=== PATIENT | female | born 1935 | race Caucasian/White ===

== ENCOUNTER 2019-05-27 15:39 | Outpatient (CLI) | payer MEDICARE, OTHER, SELFPAY ==
--- NOTE | 2019-05-27 16:08 | XR_ITS ---
WS: [id number] TIBIA-FIBULA LEFT TECHNIQUE: 2 views of the left tibia-fibula CLINICAL INFORMATION: INJURY OF LEFT LEG COMPARISON: None. FINDINGS: No evidence of acute fracture dislocation. Normal tibiotalar joint. Normal visualized tibia and fibul a. Incidental soft tissue calcification. Prominent soft tissue edema lower leg just above the ankle. Osteopenia. XR/XR tibia fibula LT 2V [id number] IMPRESSION: Prominent soft tissue edema lower leg just above the ankle. Osteopenia. No visu alized fractures.
== END 2019-05-27 15:40 | disposition home or self-care (01) ==
PROVIDERS: Family Provider Family Medicine; PCP Family Medicine; Visit Provider Nurse Practitioner Family
DX: S89.92XA Unspecified injury of left lower leg, initial encounter (principal); X58.XXXA Exposure to other specified factors, initial encounter; R60.9 Edema, unspecified; M85.80 Other specified disorders of bone density and structure, unspecified site
CPT/HCPCS: 73590

== ENCOUNTER 2019-05-28 09:06 | Outpatient (RCR) | payer MEDICARE, OTHER, SELFPAY | END 2019-05-30 23:59 | disposition home or self-care (01) | LOC: WOUND 09:06 | PROVIDERS: Family Provider Family Medicine; PCP Family Medicine; Visit Provider Nurse Practitioner Family | DX: S81.802A Unspecified open wound, left lower leg, initial encounter (principal); X58.XXXA Exposure to other specified factors, initial encounter; Y93.89 Activity, other specified | CPT/HCPCS: 87070; 87077; 87186; 87205; 99204; G0463 ==

== ENCOUNTER 2019-06-08 12:25 | Day surgery (SDC) | payer MEDICARE, OTHER, SELFPAY ==
[2019-06-05 17:21] VITALS: BMI 19.5
[2019-06-08 12:46] VITALS: BP 153/74; PULSE 71; RESP 18; TEMP 36.6; O2SAT 97
[2019-06-08] MEDS: sodium chloride 0.9% 1,000 ML 30 ML IV (12:58)
--- NOTE | 2019-06-08 13:13 | ANES.PREANE2 ---
Pre-Anesthetic Assessment Pre-Anesthetic Assessment: Height/Weight: Height 1.6 m Weight 49.895 kg Temp Pulse Resp BP Pulse Ox 97.9 F 71 18 153/74 97 06/08/19 12:46 06/08/19 12:46 06/08/19 12:46 06/08/19 12:46 06/08/19 12:46 Preop Diagnosis: Left lower extremity wound Proposed Procedure: Operation Date: 06/08/19 14:15 Proposed Procedures p Debridement left lower extremity wound(Left) - Tha Gallegos MD Was Beta Dustin taken within 24 hours: N/A Last intake: Intake Last Liquid Date 06/14/19 Last Liquid Time 17:00 Last Solid Date 06/07/19 Last Solid Time 17:00 Social: Social History: No alcohol and No tobacco Exam: Pre-Anes Outpt Exam: alert, oriented x 3, clear to auscultation bilaterally and regular rate & rhythm Airway: Submandibular: WNL Cervical ROM: WNL MP: 2 Dentition: Full Pulmonary: Pulmonary: None reported CV/HEM: CV/HEM: HTN : : None reported Hepatic: Hepatic: None reported GI: GI: None reported Metabolic: Metabolic: None reported Musc/skel: Musc/skel: None reported Neuropsych: Neuropsych: Syncope Anesthetic Plan: ASA status: 2 Anesthesia: General Risk of > 500 ml blood loss (7ml/kg in children): No Meds/Allergies Current Medications: Current Medications Generic Name Dose Route Start Last Admin Trade Name Freq PRN Reason Stop Dose Admin Sodium Chloride 1,000 mls @ 30 ml s/hr 06/08/19 12:45 06/08/19 12:58 Sodium Chloride 0.9% IV 06/09/19 12:44 30 mls/hr .Q24H OLESYA Administration Data Anesthesia Cardiac Studies: No Data to Display
--- NOTE | 2019-06-08 13:27 | W.PM.OPSUD ---
Surgery/Procedure H&P Update DATE OF PROCEDURE: June 08, 2019 DATE H&P PERFORMED: 06/05/19 H&P UPDATE INFORMATION: I have reviewed H&P completed within last 30 days, I have examined patient prior to procedure and No changes to prior documentation PREOP DIAGNOSIS: Left lower extremity wound PRIMARY INDICATION FOR PROCEDURE: The same PLANNED PROCEDURE: Operation Date: 06/08/19 14:15 Proposed Procedures p Debridement left lower extremity wound(Left) - Tha Gallegos MD
[2019-06-08] MEDS: lidocaine 2% INJ 20 mL INJECTION (14:12)
[2019-06-08 14:17] VITALS: BP 94/49; PULSE 56; RESP 16; TEMP 36.4; O2SAT 99
--- NOTE | 2019-06-08 14:19 | PM.OP ---
Operative Report Date of procedure: June 08, 2019 Pre-op Diagnosis: Left lower extremity wound Post-op diagnosis: same Post-op Diagnosis: The wound reaches all the way to the muscle layer Procedure Done: Debridement of left lower extremity wound Pre-debridement measurements 9 x 6 x 0.5 cm Post debridement measurements 9 x 7 x [address] to the muscle Surgeon: Tha Gallegos Electrical Wiring Lineman: air launch weapons technician Trent Circulating nurse Adenike Anesthesia: MAC (GUS Sosa) Estimated blood loss (mL): 5 Condition: stable Disposition: same day Brief History: This is a pleasant 83 years old female patient had a trauma to the left lower extremity ended up by a traumatic wound with hematoma formation, I was able to evaluate the patient last Saturday at the wound care center based on a consultation from my nurse practitioner Ms. Latif as she has been concerned about patient's clinical progress. After thorough history physical examination and reviewing the chart and images with my personal interpretation I did safety counselor the patient for debridement of left lower extremity wound in the OR in a more controlled environment, patient was empirically started on antibiotics. Indications, risks, benefits and alternatives were all discussed with the patient and she did agree to proceed accordingly Written informed consent per chart Procedure: Left lower extremity traumatic wound: After identifying the patient holding area, the left lower extremity was marked before the procedure by myself, patient was then taken to the operative suite, was placed in supine position, IV antibiotics were given per protocol,IV propofol was infused by the anesthesia provider, prep and drape of the left lower extremity was done under the usual sterile technique. Time-out was done verifying the patient's name/date of /planned procedure and destination after the procedure, all were in agreement. Started by excising the unhealthy necrotic indurated tissues of the wound.Incision was created at the skin level and went all the way down to the subcutaneous tissues, and muscle layer of the wound, I was able excise all unhealthy tissues, there was no evidence of pus. Debridement of left lower extremity wound: Pre-debridement measurements 9 x 6 x 0.5 cm Post debridement measurements 9 x 7 x [address] to the muscle layer Sharp Debridement all the way to the healthier muscle layer Thorough Irrigation of the wound was done with warm saline using Pulsavac 3 L, followed by appropriate hemostasis followed by placement of couple of 3-0 Vicryl ciatmi-jb-hhbud sutures for hemostasis at the caudad and cephalad parts of the wound there was some undermining at 11:00 o'clock, packing of the wound was done with minin Kerlix impregnated in lidocaine 2%, ABDs, Kerlix and Kostas wrap. Patient tolerated the procedure well, count of instruments,needles and sponges were completed at the end of the procedure. Patient was then taken to the recovery area in stable condition. I was present for the whole entire procedure
--- NOTE | 2019-06-08 14:43 | PM.PACU ---
PACU note Post-Anesthesia Exam: awake and vital signs stable Disposition: discharged
[2019-06-08 14:47] VITALS: BP 156/78; PULSE 62; RESP 18; O2SAT 100
== END 2019-06-08 15:15 | disposition home or self-care (01) ==
PROVIDERS: Family Provider Family Medicine; PCP Family Medicine; Visit Provider Surgery
PROC: (CPT 11043; principal; 2019-06-08 13:45)
DX: S81.802A Unspecified open wound, left lower leg, initial encounter (principal); X58.XXXA Exposure to other specified factors, initial encounter; I10 Essential (primary) hypertension
CPT/HCPCS: 11043; 11046 ×3; 12345; 96365; J0131; J0690; J2001; J2704; J3010; J7030

== ENCOUNTER 2019-06-26 14:58 | Outpatient (RCR) | payer MEDICARE, OTHER, SELFPAY | END 2019-06-30 23:59 | disposition home or self-care (01) | LOC: WOUND 14:58 | PROVIDERS: Family Provider Family Medicine; PCP Family Medicine; Visit Provider Surgery | DX: E11.622 Type 2 diabetes mellitus with other skin ulcer (principal); L97.902 Non-pressure chronic ulcer of unspecified part of unspecified lower leg with fat layer exposed | CPT/HCPCS: 11042; 11043; 11045; 11046; 97605; 99214 ==

== ENCOUNTER 2019-07-24 08:48 | Outpatient (RCR) | payer MEDICARE, OTHER, SELFPAY | END 2019-07-30 23:59 | disposition home or self-care (01) | LOC: WOUND 08:48 | PROVIDERS: Family Provider Family Medicine; PCP Family Medicine; Visit Provider Surgery | DX: S81.802A Unspecified open wound, left lower leg, initial encounter (principal); X58.XXXA Exposure to other specified factors, initial encounter; I96 Gangrene, not elsewhere classified | CPT/HCPCS: 11042; 11045; 97597; 97598 ==

== ENCOUNTER 2019-07-31 09:11 | Outpatient (CLI) | payer MEDICARE, OTHER, SELFPAY | END 2019-07-31 09:12 | disposition home or self-care (01) | LOC: WOUND 08-03 13:25 | PROVIDERS: Family Provider Family Medicine; PCP Family Medicine; Visit Provider Surgery | DX: L97.822 Non-pressure chronic ulcer of other part of left lower leg with fat layer exposed | CPT/HCPCS: 11042; 97597 ==

== ENCOUNTER 2019-08-07 09:08 | Outpatient (CLI) | payer MEDICARE, OTHER, SELFPAY | END 2019-08-07 09:09 | disposition home or self-care (01) | LOC: WOUND 09:09 | PROVIDERS: Family Provider Family Medicine; PCP Family Medicine; Visit Provider Surgery | DX: L97.822 Non-pressure chronic ulcer of other part of left lower leg with fat layer exposed | CPT/HCPCS: 11042 ==

== ENCOUNTER 2019-08-14 08:49 | Outpatient (CLI) | payer MEDICARE, OTHER, SELFPAY | END 2019-08-14 08:50 | disposition home or self-care (01) | LOC: WOUND 08:50 | PROVIDERS: Family Provider Family Medicine; PCP Family Medicine; Visit Provider Nurse Practitioner Family | DX: L97.822 Non-pressure chronic ulcer of other part of left lower leg with fat layer exposed | CPT/HCPCS: 11042 ==

== ENCOUNTER 2019-08-18 14:52 | Outpatient (CLI) | payer MEDICARE, OTHER, SELFPAY ==
--- NOTE | 2019-08-18 15:01 | MM_ITS ---
WS: [id number] BILATERAL DIGITAL SCREENING MAMMOGRAPHY WITH CAD CLINICAL INFORMATION: SCREEN HISTORY: Screening mammogram. No current complaints. COMPARISON: January 30, 2016 TECHNIQUE: Bilateral CC and MLO views. FINDINGS: The breasts are composed of heterogeneous fibroglandular density tissue, which can limit the detectio n of small underlying mass lesions. No suspicious mass, asymmetry, calcifications, or architectural d istortion. No evidence of malignancy. Vascular calcification. MM/[place] [id number] IMPRESSION: BI-RADS: 2-Benign FOLLOW UP: 1 Year Follow-up Recommend return to annual screening mammography.
== END 2019-08-18 14:53 | disposition home or self-care (01) ==
LOC: RADSHAW 14:58
PROVIDERS: PCP Family Medicine; Visit Provider Family Medicine
DX: Z12.31 Encounter for screening mammogram for malignant neoplasm of breast (principal)
CPT/HCPCS: 77067

== ENCOUNTER 2019-08-21 09:24 | Outpatient (CLI) | payer MEDICARE, OTHER, SELFPAY | END 2019-08-21 09:25 | disposition home or self-care (01) | LOC: WOUND 09:25 | PROVIDERS: PCP Family Medicine; Visit Provider Surgery | DX: L97.822 Non-pressure chronic ulcer of other part of left lower leg with fat layer exposed | CPT/HCPCS: 97597 ==

== ENCOUNTER 2019-08-28 08:53 | Outpatient (CLI) | payer MEDICARE, OTHER, SELFPAY | END 2019-08-28 08:54 | disposition home or self-care (01) | LOC: WOUND 08:54 | PROVIDERS: PCP Family Medicine; Visit Provider Surgery | DX: I96 Gangrene, not elsewhere classified (principal); L97.822 Non-pressure chronic ulcer of other part of left lower leg with fat layer exposed | CPT/HCPCS: 97597 ==

== ENCOUNTER 2019-09-04 09:06 | Outpatient (CLI) | payer MEDICARE, OTHER, SELFPAY | END 2019-09-04 09:07 | disposition home or self-care (01) | LOC: WOUND 09:09 | PROVIDERS: PCP Family Medicine; Visit Provider Surgery | DX: I96 Gangrene, not elsewhere classified (principal); L97.822 Non-pressure chronic ulcer of other part of left lower leg with fat layer exposed | CPT/HCPCS: 11042 ==

== ENCOUNTER 2019-09-08 14:56 | Outpatient (CLI) | payer MEDICARE, OTHER, SELFPAY ==
--- NOTE | 2019-09-08 15:03 | USCV_ITS ---
Lin Cuellar Age: 84 Gender: F : 1935 Exam Date: 09/08/2019 15:26 Ordering Phys: Fredy Wilson MD Technologist: Denia Crum Exam Location: [facility] [place] Indication: HEART PALP BP: / HR: 62 Rhythm: Sinus Technical Quality: Fair MEASUREMENTS (Male / Female) Normal Values 2D ECHO LV Diastolic Diameter PLAX 2.9 cm 4.2 - 5.9 / 3.9 - 5.3 cm LV Systolic Diameter PLAX 2.4 cm LV Chamber Size 2.8 cm IVS Diastolic Thickness 1.1 cm 0.6 - 1.0 / 0.6 - 0.9 cm IVS Systolic Thickness 1.8 cm LVPW Diastolic Thickness 0.2 cm 0.6 - 1.0 / 0.6 - 0.9 cm LVPW Systolic Thickness 1.0 cm RV Chamber Size 3.0 cm LVOT Diameter 2.0 cm LV Ejection Fraction 2D Teich 36.9 % LV Ejection Fraction MOD 2C 55.1 % LV Ejection Fraction 2C AL 62.8 % LA Diameter 1.3 cm LA Width 2.6 cm LA Height 2.7 cm RA Width 1.9 cm RA Height 1.7 cm Aorta at Sinotubular Diameter 2.5 cm M-MODE LV Diastolic Diameter MM 3.3 cm 4.2 - 5.9 / 3.9 - 5.3 cm LV Systolic Diameter MM 2.6 cm LV Ejection Fraction MM Teich 47.5 % IVS Diastolic Thickness MM 0.9 cm 0.6 - 1.0 / 0.6 - 0.9 cm IVS Systolic Thickness MM 1.0 cm LVPW Diastolic Thickness MM 1.0 cm 0.6 - 1.0 / 0.6 - 0.9 cm LVPW Systolic Thickness MM 0.8 cm RV Diastolic Diameter MM 0.7 cm Aortic Annulus Diameter 3.4 cm LA Ao Ratio MM 0.4 MV E Point Septal Separation 0.4 cm DOPPLER AV Peak Velocity 126.0 cm/s LVOT Peak Velocity 123.0 cm/s AV Area Cont Eq vti 3.3 cm squared AV Area Cont Eq pk 3.0 cm squared MV Area PHT 1.8 cm squared Mitral E to A Ratio 0.7 MV E' Velocity 5.0 cm/s Mitral E to MV E' Ratio 9.9 Mitral E to LV E' Lateral Ratio 12.0 Mitral E to LV E' Septal Ratio 8.5 TR Peak Velocity 246.3 cm/s TR Peak Gradient 24.3 mmHg TR Mean Velocity 180.0 cm/s TR Mean Gradient 14.5 mmHg TR Velocity Time Integral 73.5 cm Right Atrial Pressure 3.0 mmHg Pulmonary Artery Systolic Pressu 27.3 mmHg PV Peak Velocity 56.0 cm/s RV Acceleration Time 0.1 s RV Ejection Time 0.3 s RV AcT/ET 0.4 FINDINGS Left Ventricle Normal left ventricular size and systolic function, EF 55 %. No regional wall motion abnormalities. Mild left ventricular hypertrophy. Grade I/IV diastolic dysfunction (abnormal relaxation filling pattern), normal to mildly elevated filling pressures. Right Ventricle The right ventricle is normal in size and function. Right Atrium The right atrium is normal in size. Left Atrium The left atrium is normal in size. Mitral Valve Thickened mitral valve. Mild mitral annular calcification. Trace to mild mitral valve regurgitation. Aortic Valve Thickened aortic valve. Tricuspid Valve Dvzq-us-qjfdqiim tricuspid valve regurgitation. Pulmonic Valve No gross abnormalities noted Pericardium Normal pericardium without effusion. Aorta Normal ascending aorta dimension. CONCLUSIONS Normal left ventricular size and systolic function, EF 55 %. No regional wall motion abnormalities. Mild left ventricular hypertrophy. Grade I/IV diastolic dysfunction (abnormal relaxation filling pattern), normal to mildly elevated filling pressures. Thickened mitral valve. Mild mitral annular calcification. Trace to mild mitral valve regurgitation. Thickened aortic valve. [id number]-[id number] tricuspid valve regurgitation. Estimated pulmonary artery peak systolic pressure of 27 mmHg There is no pericardial effusion. There are no intracardiac masses. No previous study is available for comparison. Dr Fredy Wilson MD FAC Edited by: CV Ortho Tech (Electronically Signed) Final Date: 08 September 2019 17:53 Amended: 09 September 2019 12:55 C
== END 2019-09-08 14:57 | disposition home or self-care (01) ==
LOC: RAD 15:00
PROVIDERS: PCP Family Medicine; Visit Provider Internal Medicine Cardiovascular Disease
DX: I73.9 Peripheral vascular disease, unspecified (principal); R00.2 Palpitations; I08.3 Combined rheumatic disorders of mitral, aortic and tricuspid valves
CPT/HCPCS: 93306

== ENCOUNTER 2019-09-11 09:09 | Outpatient (CLI) | payer MEDICARE, OTHER, SELFPAY | END 2019-09-11 09:10 | disposition home or self-care (01) | LOC: WOUND 09:11 | PROVIDERS: PCP Family Medicine; Visit Provider Nurse Practitioner Family | DX: I96 Gangrene, not elsewhere classified (principal); L97.822 Non-pressure chronic ulcer of other part of left lower leg with fat layer exposed | CPT/HCPCS: 11042 ==

== ENCOUNTER 2019-09-17 08:31 | Outpatient (CLI) | payer MEDICARE, OTHER, SELFPAY ==
--- NOTE | 2019-09-17 08:45 | USCV_ITS ---
Lin Cuellar Age: 84 Gender: F : 1935 Exam Date: 09/17/2019 08:28 Ordering Phys: Fredy Wilson MD ([email or web address]) Technologist: Exam Location: [facility] [place] Indication: HYPERTENSION RIGHT LEFT Brachial 176.00 mmHg Brachial 172.00 mmHg Pressure (mmHg) Waveform Pressure (mmHg) Waveform 147.00 Pre-Exercise Toe Pressure 107.00 0.84 Pre-Exercise Toe/Brachial Index 0.61 FINDINGS Supernormal resting PANKAJ with a normal TBI on the right side. Supernormal resting PANKAJ with slightly diminished resting TBI on the left side Loss of dicrotic notch in the PVR waveforms bilaterally CONCLUSIONS 1. Features of mild peripheral arterial disease bilaterally Dr Fredy Wilson MD FAC (Electronically Signed) Final Date: 18 September 2019 13:57 S
== END 2019-09-17 08:32 | disposition home or self-care (01) ==
LOC: US 08:32
PROVIDERS: PCP Family Medicine; Visit Provider Internal Medicine Cardiovascular Disease
DX: I73.9 Peripheral vascular disease, unspecified (principal)
CPT/HCPCS: 93922

== ENCOUNTER 2019-09-18 09:22 | Outpatient (CLI) | payer MEDICARE, OTHER, SELFPAY | END 2019-09-18 09:23 | disposition home or self-care (01) | LOC: WOUND 09:24 | PROVIDERS: PCP Family Medicine; Visit Provider Surgery | DX: Z09 Encounter for follow-up examination after completed treatment for conditions other than malignant neoplasm (principal) | CPT/HCPCS: 99212 ==

== ENCOUNTER 2020-02-29 12:35 | Outpatient (CLI) | payer MEDICARE, OTHER, SELFPAY ==
--- NOTE | 2020-02-29 13:06 | CT_ITS ---
WS: [id number] CT ANGIOGRAM CAROTID ARTERIES HISTORY: VERTEBRAL ARTERY COMPRESSION SYNDROME, DIZZINESS TECHNIQUE: CT angiogram is performed of the carotid arteries. During arterial injection imaging is ob tained from the skull base to the aortic arch in 1.25 mm imaging. Coronal and sagittal reformats are submitted, MIP imaging also reviewed. Additional multiplanar reformats of the carotid arteries are watt bmitted. NASCET criteria utilized. All CT scans at [facility] use at least one of these d ose optimization techniques: automated exposure control; mA and/or kV adjustment per patient size (in cludes targeted exams where dose is matched to clinical indication); or iterative reconstruction. CONTRAST: Omnipaque 350; 95 mL IV. DLP: 700.97 mGycm COMPARISON: None available. Right carotid: Common carotid artery: Arises normally from the innominate artery. No significant plaque or stenosis. Internal carotid artery: No plaque or stenosis. External carotid artery: Patent. Left carotid: Common carotid artery: Normally arises from the arch. Small amount of calcified plaque towards the bi furcation. Internal carotid artery: Mild atherosclerosis with no significant aneurysm or stenosis. External carotid artery: Patent. Right vertebral artery: Small caliber but patent. Left vertebral artery: Small amount of calcified plaque at the origin. Mild stenosis but no high-grad e stenosis. Tortuous course of the vertebral artery crosses to the RIGHT of midline distally. Subclavian arteries: Mild plaque in the proximal RIGHT subclavian artery. No high-grade stenosis. LEF T subclavian artery is poorly visualized due to the contrast injection. Upper thorax: Biapical pleural thickening, greatest on the RIGHT. Thyroid gland: Subcentimeter LEFT thyroid nodule. Osseous structures: Increase in the cervical lordosis. CT/CT angio neck [id number] IMPRESSION: 1. No significant carotid artery stenosis. Small amount of calcified plaque at the bifurcations. Stenosis less than 50%. 2. Dominant tortuous LEFT vertebral artery. No compression upon the vertebral arteries.
== END 2020-02-29 12:36 | disposition home or self-care (01) ==
LOC: RADWPI 12:43
PROVIDERS: PCP Family Medicine; Visit Provider Family Medicine
DX: M47.029 Vertebral artery compression syndromes, site unspecified (principal); R42 Dizziness and giddiness
CPT/HCPCS: 70498; Q9967

== ENCOUNTER 2020-03-09 14:09 | Outpatient (CLI) | payer MEDICARE, OTHER, SELFPAY ==
--- NOTE | 2020-03-09 14:18 | MR_ITS ---
WS: [id number] MRI HEAD WITH CONTRAST TECHNIQUE: Sagittal T1, T2 axial, T2 axial FLAIR, axial susceptibility weighted imaging, axial diffus ion weighted images, and coronal T2 images were obtained. Pre and post-T1 axial and post T1 coronal i mages. ADC and FSPGR images. CLINICAL INFORMATION: VERTEBRAL ARTERY COMPRESSION SYNDROMES, DIZZINESS COMPARISON: CTA February 29, 2020 FINDINGS: No evidence of restricted diffusion to suggest acute ischemia. Ventricular system and basal cisterns are patent. Mild small vessel changes. Moderate parenchymal volume loss. Moderate symmetric atrophy i nvolving the temporal lobes and hippocampal formations. Normal posterior fossa. Normal vascular flow voids at the skull base. No extra-axial fluid collections. Mild mucosal thickening paranasal sinuses. Mastoid air cells are well aerated. Normal optic chiasm and pituitary infundibulum. No abnormal gadolinium enhancement. Normal dural venous sinuses. Normal optic chiasm and pituitary gl and. Cavernous sinuses and Meckel's cave normal in appearance. No hemosiderin on susceptibly weighted images. MR/MR head wo/w con [id number] IMPRESSION: 1. No evidence of restricted diffusion to suggest acute ischemia. 2. Mild small vessel changes with moderate parenchymal volume loss. 3. Moderate symmetric atrophy involving the temporal lobes and hippocampal for mations. 4. No abnormal gadolinium enhancement. 5. Normal cerebellum. 6. No hemosiderin on susceptibly weighted images.
== END 2020-03-09 14:10 | disposition home or self-care (01) ==
LOC: RADWPI 14:15
PROVIDERS: PCP Family Medicine; Visit Provider Family Medicine
DX: R42 Dizziness and giddiness (principal); M47.029 Vertebral artery compression syndromes, site unspecified; G31.9 Degenerative disease of nervous system, unspecified
CPT/HCPCS: 70553; A9579

== ENCOUNTER → 2021-07-13 11:25 | Outpatient (BNVA) | payer MEDICARE, OTHER, SELFPAY | PROVIDERS: PCP Family Medicine; Visit Provider Orthopaedic Surgery | DX: S52.022A Displaced fracture of olecranon process without intraarticular extension of left ulna, initial encounter for closed fracture (principal); W19.XXXA Unspecified fall, initial encounter | CPT/HCPCS: 99204 ==

== ENCOUNTER 2021-07-17 08:33 | Day surgery (SDC) | payer MEDICARE, OTHER, SELFPAY ==
[2021-07-14 13:22] VITALS: BMI 17.3
[2021-07-17] VITALS (7 sets, daily range): BP systolic 158–179; BP diastolic 73–98; PULSE 63–95; RESP 14–18; TEMP 36.4–37.1; O2SAT 94–100
--- NOTE | 2021-07-17 | SCC_ITS ---
Procedure done: ORIF left olecranon 14.6 seconds of fluoroscopic guidance, for a cumulative dose of 0.26 mGy, was provided to Dr. Da Silva by the radiology department. C-arm images of the LEFT elbow were saved for the patient's permanent record. [facility]
--- NOTE | 2021-07-17 | XR_ITS ---
WS: [id number] Exam: XR elbow LT 2V [id number] Date/Time of Exam: 07/17/2021 12:00 AM Reason For Exam: left olecranon elbow fx Comparison 07/11/2021. Intraoperative AP and lateral C-arm images of the left elbow are submitted for evaluation. Previously noted fracture of the proximal ulna has been reduced and stabilized with the posterior neva te and screw fixation. Alignment appears to be satisfactory for healing. Postoperative changes in the adjacent soft tissues. XR/XR elbow LT 2V [id number] IMPRESSION: 1. ORIF involving a fracture of the proximal ulna. Alignment appears to be sati sfactory for healing.
--- NOTE | 2021-07-17 09:00 | ECG_ITS ---
[facility] Test Date: 2021-07-17 Pat Name: Lin Cuellar Department: Room: Gender: Female Tearoom Host/Hostess: : 1935 Requested By: Fei Wong Order Number: [id number] Keaton MD: Katharine Guadarrama M.D. Measurements Intervals [place] Rate: 65 P: AK: QRS: 21 QRSD: 87 T: 55 QT: 400 QTc: 419 Interpretive Statements SINUS RHYTHM WITH FREQUENT PAC'S AND VENTRICULAR PREMATURE COMPLEXES POSSIBLE RIGHT VENTRICULAR CONDUCTION DELAY [RSR (QR) IN V1/V2] ABNORMAL RHYTHM ECG No previous ECG available for comparison Electronically Signed On 07-18-2021 7:40:50 CDT by Katharine Guadarrama M.D. [email or web address]
--- NOTE | 2021-07-17 09:59 | P.ANESASSM_ITS ---
Pre-Anesthetic Assessment Height/Weight: Height 1.65 m Weight 47.174 kg Temp Pulse Resp BP Pulse Ox 97.6 F 64 16 164/73 98 07/17/21 08:56 07/17/21 08:56 07/17/21 08:56 07/17/21 08:56 07/17/21 08:56 Preop Diagnosis: Left supracondylar humerus fracture Operation Date: 07/17/21 10:10 Proposed Procedures p ORIF Elbow 48525/s52.022a(Left) - Fei Da Silva DO Familial anesthetic complications: None Was Beta Dustin taken within 24 hours: N/A Was Clonidine taken within 24 hours: N/A Last intake: Intake Last Liquid Date 07/16/21 Last Liquid Time 20:00 Last Solid Date 07/16/21 Last Solid Time 20:00 Social No alcohol and No tobacco Exam alert, oriented x 3, clear to auscultation bilaterally and regular rate & rhythm Airway Submandibular: within normal limits Cervical ROM: within normal limits Mallampati: Class II Comments: Comments: Missing teeth History/ROS No significant complaints Pulmonary None reported CV/HEM Arrythmia, Hypertension and Peripheral Vascular Disease 2nd degree block on EKG today METS > 4 None reported Hepatic None reported GI None reported Metabolic None reported Musc/skel None reported Neuropsych Vertigo Anesthetic Plan ASA status: 2 Anesthesia: Anesthesia Evaluation and General Other: We discussed risk and benefits of general anesthesia including PONV, sore throat (sometimes severe), corneal abrasion, positioning and peripheral nerve injuries, life threatening allergic reaction, post operative ICU admission requiring prolonged intubation, stroke, heart attack, , and rare incidences of recall. Patient consents to proceed with general anesthesia. Risk of > 500 ml blood loss (7ml/kg in children): No Medications/Allergies Home Medications Medication Instructions Recorded Confirmed Last Taken Type simvastatin 20 mg tablet 20 mg PO DAILY 06/05/19 07/17/21 07/16/21 History hydrocodone 5 mg-acetaminophen 325 1 - 2 tab PO .Q4-6H #40 tab 07/17/21 Unknown Rx mg tablet irbesartan 150 mg tablet (Avapro) 150 mg PO DAILY 07/17/21 07/17/21 07/16/21 History Allergies Allergy/AdvReac Type Severity Reaction Status Date / Time No Known Allergies Allergy Verified 07/14/21 13:20 [facility] Anesthesia Medical History Benign essential HTN Heart palpitations The EKG revealed a normal sinus rhythm with possible left atrial enlargement. No acute ST-T changes. Normal ID interval and QRS duration. Hx of hyperlipidemia Hx of primary hypertension Non-healing wound Peripheral arterial disease Vertigo Surgical History Hx of hysterectomy Social History Smoking and tobacco status: never smoked History of recent travel: No Data Anesthesia Cardiac Studies: Echocardiogram Ultrasound 09/08/19
[2021-07-17] MEDS: sodium chloride 0.9% 1,000 ML 30 ML IV (10:01)
--- NOTE | 2021-07-17 10:06 | W.PM.OPSUD ---
Surgery/Procedure H&P Update DATE OF PROCEDURE: July 17, 2021 DATE H&P PERFORMED: 07/13/21 H&P UPDATE INFORMATION: I have reviewed H&P completed within last 30 days, I have examined patient prior to procedure and No changes to prior documentation PREOP DIAGNOSIS: Left supracondylar humerus fracture PLANNED PROCEDURE: Operation Date: 07/17/21 10:10 Proposed Procedures p ORIF Elbow 57726/s52.022a(Left) - Fei Da Silva DO
[2021-07-17] MEDS: lidocaine 2% INJ 20 mL INJECTION (11:20)
--- NOTE | 2021-07-17 11:30 | PM.OP ---
Operative Report Date of procedure: July 17, 2021 Pre-op diagnosis: Preop Diagnosis Left olecranon fracture Post-op diagnosis: same Procedure done: ORIF left olecranon Surgeon: Fei Da Silva Insurance Attorney: Tapan Mack Insurance Attorney: The salesperson surgical appliances, Tapan Mack, PAC was needed for his expertise with fracture care. He was important and necessary throughout the procedure to complete in a safe and timely manner. He assisted with patient positioning prepping and draping tissue retraction suctioning of the operative field protection of the critical structures and tissue closure Estimated blood loss (mL): 10 Procedure: ORIF of the Olecranon Patient to the operative suite after undergoing anesthesia was placed in the supine position. All areas impingement well-padded. Patient arm was then prepped and draped. The skin incision is made over the left elbow posteriorly. The olecranon fracture was identified reduced with [id number] reduction clamp and K wires. This was checked under C-arm and ensured the fracture was reduced. And then a [employer] olecranon plate was placed. 2 screws were placed through the proximal end. And then 2 screws placed to the distal and. AP lateral fluoroscopy ensured the fracture and hardware prone position. Wounds were irrigated and closed with Vicryl and nylon suture. Sterile dressings applied patient was placed in a posterior splint transferred to the PACU in stable condition.
[2021-07-17] MEDS: HYDROcodone-acetaminophen 5-325 mg Tablet 1 TAB PO (12:45)
--- NOTE | 2021-07-17 14:50 | ANE.PACU2 ---
Inpatient post-anesthesia follow up: Airway intact: Yes Vital signs: Temperature 97.8 F Pulse Rate 63 Respiratory Rate 14 Blood Pressure 167/95 Pulse Oximetry 95 Oxygen Delivery Me thod Room Air Oxygen Flow Rate Fraction of Inspir ed Oxygen Hydration adequate: Yes Nausea and vomiting: No Pain level: 4 Mental status: Baseline
== END 2021-07-17 13:05 | disposition home or self-care (01) ==
PROVIDERS: PCP Family Medicine; Visit Provider Orthopaedic Surgery
PROC: (CPT 24685; principal; 2021-07-17 10:10)
DX: S52.022A Displaced fracture of olecranon process without intraarticular extension of left ulna, initial encounter for closed fracture (principal); W10.9XXA Fall (on) (from) unspecified stairs and steps, initial encounter; I10 Essential (primary) hypertension; E78.5 Hyperlipidemia, unspecified
CPT/HCPCS: 24685; 73070; 76000; 93005; C1713; J0690; J1100; J2405; J2704; J2710; J3010; J3490; J7030

== ENCOUNTER → 2021-08-01 15:29 | Outpatient (BNVA) | payer MEDICARE, OTHER, SELFPAY | PROVIDERS: PCP Family Medicine; Visit Provider Physician Assistant | DX: S52.022D Displaced fracture of olecranon process without intraarticular extension of left ulna, subsequent encounter for closed fracture with routine healing (principal); X58.XXXD Exposure to other specified factors, subsequent encounter | CPT/HCPCS: 73080; 99024; 99999 ==

== ENCOUNTER 2021-08-01 16:53 | Outpatient (CLI) | payer MEDICARE, OTHER, SELFPAY | END 2021-08-01 16:54 | disposition home or self-care (01) | PROVIDERS: PCP Family Medicine; Visit Provider Orthopaedic Surgery | DX: Z47.89 Encounter for other orthopedic aftercare (principal) | CPT/HCPCS: 97760; L3761 ==

== ENCOUNTER → 2021-09-07 13:30 | Outpatient (BNVA) | payer MEDICARE, OTHER, SELFPAY | PROVIDERS: PCP Family Medicine; Visit Provider Physician Assistant | DX: S52.022D Displaced fracture of olecranon process without intraarticular extension of left ulna, subsequent encounter for closed fracture with routine healing (principal); X58.XXXD Exposure to other specified factors, subsequent encounter | CPT/HCPCS: 73080; 99024 ==

== ENCOUNTER → 2021-10-11 00:01 | Outpatient (BNVA) | payer MEDICARE, OTHER, SELFPAY | PROVIDERS: PCP Family Medicine; Visit Provider Family Medicine | DX: R63.4 Abnormal weight loss (principal); I49.9 Cardiac arrhythmia, unspecified; I49.1 Atrial premature depolarization; R42 Dizziness and giddiness; E78.5 Hyperlipidemia, unspecified; I10 Essential (primary) hypertension; E87.6 Hypokalemia | CPT/HCPCS: 80053; 80061; 82607; 83735; 84443; 85025 ==

== ENCOUNTER → 2021-10-24 09:29 | Outpatient (BNVA) | payer MEDICARE, OTHER, SELFPAY | PROVIDERS: PCP Family Medicine; Visit Provider Internal Medicine Cardiovascular Disease | DX: R00.2 Palpitations (principal); I49.1 Atrial premature depolarization; I10 Essential (primary) hypertension; R42 Dizziness and giddiness; E78.5 Hyperlipidemia, unspecified | CPT/HCPCS: 99204 ==

== ENCOUNTER → 2021-10-26 10:56 | Outpatient (BNVA) | payer MEDICARE, OTHER, SELFPAY | PROVIDERS: PCP Family Medicine; Visit Provider Internal Medicine Cardiovascular Disease | DX: I49.1 Atrial premature depolarization (principal); I49.3 Ventricular premature depolarization; I47.1 Supraventricular tachycardia | CPT/HCPCS: 93242 ==

== ENCOUNTER → 2021-11-09 10:57 | Outpatient (BNVA) | payer MEDICARE, OTHER, SELFPAY | PROVIDERS: PCP Family Medicine; Visit Provider Clinical Nurse Specialist Adult Health | DX: E87.6 Hypokalemia (principal); E53.8 Deficiency of other specified B group vitamins; I49.1 Atrial premature depolarization; Z86.39 Personal history of other endocrine, nutritional and metabolic disease | CPT/HCPCS: 80048 ==

== ENCOUNTER → 2021-12-14 11:02 | Outpatient (BNVA) | payer MEDICARE, OTHER, SELFPAY | PROVIDERS: PCP Family Medicine; Visit Provider Family Medicine | DX: E87.6 Hypokalemia (principal) | CPT/HCPCS: 80048 ==

== ENCOUNTER → 2022-02-01 10:37 | Outpatient (BNVA) | payer MEDICARE, OTHER, SELFPAY | PROVIDERS: PCP Family Medicine; Visit Provider Internal Medicine Cardiovascular Disease | DX: R00.2 Palpitations (principal); I49.1 Atrial premature depolarization; I10 Essential (primary) hypertension; R42 Dizziness and giddiness | CPT/HCPCS: 99214 ==

== ENCOUNTER → 2022-08-08 15:27 | Outpatient (BNVA) | payer MEDICARE, OTHER, SELFPAY | PROVIDERS: PCP Family Medicine; Visit Provider Nurse Practitioner Family | DX: L57.0 Actinic keratosis (principal); L81.4 Other melanin hyperpigmentation; D22.5 Melanocytic nevi of trunk; Z71.89 Other specified counseling; L85.3 Xerosis cutis; L57.8 Other skin changes due to chronic exposure to nonionizing radiation | CPT/HCPCS: 11102; 17000; 17003; 99213 ==

== ENCOUNTER → 2022-11-13 10:34 | Outpatient (BNVA) | payer MEDICARE, OTHER, SELFPAY | PROVIDERS: PCP Family Medicine; Visit Provider Nurse Practitioner Family | DX: D18.01 Hemangioma of skin and subcutaneous tissue (principal); L81.4 Other melanin hyperpigmentation; L57.8 Other skin changes due to chronic exposure to nonionizing radiation; L85.3 Xerosis cutis; L57.0 Actinic keratosis | CPT/HCPCS: 17000; 17003; 99213 ==

== ENCOUNTER → 2023-01-01 12:19 | Outpatient (BNVA) | payer MEDICARE, OTHER, SELFPAY | PROVIDERS: PCP Family Medicine; Visit Provider Family Medicine | DX: I10 Essential (primary) hypertension (principal); E53.8 Deficiency of other specified B group vitamins; Z86.39 Personal history of other endocrine, nutritional and metabolic disease | CPT/HCPCS: 80048; 80061; 82607 ==

== ENCOUNTER → 2023-02-13 09:35 | Outpatient (BNVA) | payer MEDICARE, OTHER, SELFPAY | PROVIDERS: PCP Family Medicine; Visit Provider Family Medicine | DX: I10 Essential (primary) hypertension (principal) | CPT/HCPCS: 80053 ==

== ENCOUNTER → 2023-05-02 12:08 | Outpatient (BNVA) | payer MEDICARE, OTHER, SELFPAY | PROVIDERS: PCP Family Medicine; Visit Provider Family Medicine | DX: R42 Dizziness and giddiness (principal); E87.6 Hypokalemia; E55.9 Vitamin D deficiency, unspecified; Z91.81 History of falling | CPT/HCPCS: 80048; 82607; 84443; 85025 ==

== ENCOUNTER → 2023-05-03 08:53 | Outpatient (BNVA) | payer MEDICARE, OTHER, SELFPAY | PROVIDERS: PCP Family Medicine; Visit Provider Family Medicine | DX: E87.6 Hypokalemia (principal) | CPT/HCPCS: 80048; 83735 ==

== ENCOUNTER → 2023-05-13 12:21 | Outpatient (BNVA) | payer MEDICARE, OTHER, SELFPAY | PROVIDERS: PCP Family Medicine; Visit Provider Family Medicine | DX: E87.6 Hypokalemia (principal) | CPT/HCPCS: 80053; 83735 ==

== ENCOUNTER → 2023-05-16 10:23 | Outpatient (BNVA) | payer MEDICARE, OTHER, SELFPAY | PROVIDERS: PCP Family Medicine; Visit Provider Nurse Practitioner Family | DX: L57.0 Actinic keratosis (principal); D22.5 Melanocytic nevi of trunk; L85.3 Xerosis cutis; L57.8 Other skin changes due to chronic exposure to nonionizing radiation; L82.1 Other seborrheic keratosis; Q82.5 Congenital non-neoplastic nevus; I87.2 Venous insufficiency (chronic) (peripheral) | CPT/HCPCS: 17000; 99213 ==

== ENCOUNTER → 2023-05-27 14:24 | Outpatient (BNVA) | payer MEDICARE, OTHER, SELFPAY | PROVIDERS: PCP Family Medicine; Visit Provider Family Medicine | DX: E87.6 Hypokalemia (principal) | CPT/HCPCS: 80048 ==

== ENCOUNTER → 2023-09-18 08:16 | Outpatient (BNVA) | payer MEDICARE, OTHER, SELFPAY | PROVIDERS: PCP Family Medicine; Visit Provider Family Medicine | DX: E87.6 Hypokalemia (principal); E53.8 Deficiency of other specified B group vitamins; E55.9 Vitamin D deficiency, unspecified; Z91.81 History of falling; I10 Essential (primary) hypertension; R42 Dizziness and giddiness | CPT/HCPCS: 80048; 82306; 82607 ==

== ENCOUNTER → 2024-01-27 10:38 | Outpatient (BNVA) | payer MEDICARE, OTHER, SELFPAY | PROVIDERS: PCP Family Medicine; Visit Provider Family Medicine | DX: E87.6 Hypokalemia (principal); Z91.81 History of falling; R42 Dizziness and giddiness; E53.8 Deficiency of other specified B group vitamins | CPT/HCPCS: 80053; 82306; 82607; 83735; 84443; 85025 ==

== ENCOUNTER → 2024-04-22 12:53 | Outpatient (BNVA) | payer MEDICARE, OTHER, SELFPAY | PROVIDERS: PCP Family Medicine; Visit Provider Family Medicine | DX: E87.6 Hypokalemia (principal) | CPT/HCPCS: 80053 ==

== ENCOUNTER → 2024-06-01 15:32 | Outpatient (BNVA) | payer MEDICARE, OTHER, SELFPAY | PROVIDERS: PCP Family Medicine; Visit Provider Nurse Practitioner Family | DX: D22.5 Melanocytic nevi of trunk (principal); L57.8 Other skin changes due to chronic exposure to nonionizing radiation; L82.1 Other seborrheic keratosis; Q82.5 Congenital non-neoplastic nevus; L82.0 Inflamed seborrheic keratosis; Z78.9 Other specified health status; L29.89 Other pruritus; L53.8 Other specified erythematous conditions; L57.0 Actinic keratosis | CPT/HCPCS: 17000; 17110; 99213 ==

== ENCOUNTER → 2024-11-09 10:25 | Outpatient (BNVA) | payer MEDICARE, OTHER, SELFPAY | PROVIDERS: PCP Family Medicine; Visit Provider Family Medicine | DX: E53.8 Deficiency of other specified B group vitamins (principal); Z86.39 Personal history of other endocrine, nutritional and metabolic disease; I10 Essential (primary) hypertension; R42 Dizziness and giddiness; E87.6 Hypokalemia; R60.0 Localized edema | CPT/HCPCS: 80053; 82607; 83880; 84443; 85025 ==

== ENCOUNTER → 2024-12-10 13:20 | Outpatient (BNVA) | payer MEDICARE, OTHER, SELFPAY | PROVIDERS: PCP Family Medicine; Visit Provider Nurse Practitioner Family | DX: Q82.5 Congenital non-neoplastic nevus (principal); L57.8 Other skin changes due to chronic exposure to nonionizing radiation; L82.1 Other seborrheic keratosis; D48.5 Neoplasm of uncertain behavior of skin; L57.0 Actinic keratosis | CPT/HCPCS: 11102; 17000; 99213 ==

== ENCOUNTER → 2025-01-12 10:39 | Outpatient (BNVA) | payer MEDICARE, OTHER, SELFPAY | PROVIDERS: PCP Family Medicine; Visit Provider Dermatology | DX: C44.311 Basal cell carcinoma of skin of nose (principal) | CPT/HCPCS: 13151; 17311 ==